=== PATIENT | male | born 1940 | race Caucasian/White ===

== ENCOUNTER → 2023-06-08 | Outpatient (CLI) | payer MEDICARE, SELFPAY ==
[2023-06-08 10:09] LABS: International Normalized Ratio 1.2; Prothrombin Time (Protime)PT. 15.6 SECONDS (11.7-14.9)
[2023-06-08 10:28] LABS: AST(SGOT) 180 U/L (15-37); Alanine Aminotransfer ALT/SGPT 111 U/L (16-61); Albumin, Serum 2.6 g/dL (3.2-5.0); Alkaline Phosphatase 514 U/L (45-117); Bilirubin, Direct 15.23 mg/dL (0.00-0.30); Globulin 4.5 g/dL (2.2-4.2); Protein, Total 7.1 g/dL (6.4-8.2)
== END | disposition home or self-care (01) ==
PROVIDERS: Referring Provider Surgery; Visit Provider Surgery
DX: R17 Unspecified jaundice (principal)
CPT/HCPCS: 36415; 80076; 85610